=== PATIENT | female | born 1980 | race Caucasian/White ===

== ENCOUNTER → 2016-06-27 | Outpatient (CLI) | payer BC ==
[~2016-06-27] MED LIST: CIPR-255 PO; IBUP-1449 PO; PRENTAB26 PO
[2016-06-27 10:07] LABS: BASO % 0.1 %; BASO ABS # 0.01 K/uL (0-0.2); COMPLETE YES; EOS % 1.3 %; HEMATOCRIT 31.3 % (37-47); IG% 0.3 %; LYMPH ABS # 1.15 K/uL (1.2-3.4); MEAN CELL VOLUME 92.3 fL (80-100); MEAN CORPUSCULAR HGB CONC 35.8 g/dl (32-36); MONO % 4.6 %; NEUT % 77.7 %; PLATELET COUNT 219 K/uL (130-400); RED BLOOD COUNT 3.39 M/uL (4.2-5.4); WHITE BLOOD COUNT 7.17 K/uL (4.8-10.8)
[2016-06-27 11:02] LABS: GTGD 50 Grams
== END | disposition home or self-care (01) ==
LOC: C.LAB 07:41
PROVIDERS: ATTEND Obstetrics & Gynecology
DX: O09.512 Supervision of elderly primigravida, second trimester (principal)

== ENCOUNTER 2016-12-02 11:35 | Inpatient (IN) | payer BC ==
[~2016-12-02] VITALS: Ht 160 cm; Wt 62.1 kg
[2016-12-02] MEDS ORDERED: LACTATED RINGER'S 1000ML 1,000 ML IV PRN (20:33)
[2016-12-02] MEDS ORDERED: LACTATED RINGER'S 1000ML 1,000 ML IV SCH (20:33)
[2016-12-02] MEDS ORDERED: LACTATED RINGER'S 1000ML 500 ML IV PRN ×2 (20:35→23:41)
[2016-12-02 20:43] VITALS: Ht 160 cm; Wt 62.1 kg
[2016-12-02] MEDS ORDERED: OXYTOCIN 30 UNITS/500ML NSS IV PRN (20:45)
[2016-12-02 20:59] LABS: HEMATOCRIT 30.4 % (37-47); MEAN CELL VOLUME 87.1 fL (80-100); MEAN CORPUSCULAR HEMOGLOBIN 28.9 pg (25-34); MEAN CORPUSCULAR HGB CONC 33.2 g/dl (32-36); MEAN PLATELET VOLUME 8.8 fL (7.4-10.4); PLATELET COUNT 216 K/uL (130-400); RED BLOOD COUNT 3.49 M/uL (4.2-5.4); WHITE BLOOD COUNT 7.93 K/uL (4.8-10.8)
[2016-12-02] MEDS ORDERED: BUPIVACAINE 0.25% 30 ML VIAL ONE (21:49)
[2016-12-02] MEDS ORDERED: FENTANYL 2MCG/ML ROPIV 1.25MG/ML 100ML BAG EPI ONE (21:50)
[2016-12-02] MEDS ORDERED: EpHEDrine SULFATE INJ 50 MG/ML AMP ONE (21:50)
[2016-12-02] MEDS ORDERED: FENTANYL CITRATE INJ 50 MCG/1 ML 2 ML VIAL ONE (21:50)
[2016-12-02] MEDS ORDERED: NALOXONE HCL INJ 1 MG in SODIUM CHLORIDE 0.9% 1000ML 1,000 ML IV PRN (23:41)
[2016-12-02] MEDS ORDERED: DiphenhydrAMINE HCL 50 MG/ML VIAL IV PRN (23:45)
[2016-12-02] MEDS ORDERED: NALOXONE HCL INJ 0.4 MG/1 ML VIAL/CARP IV PRN (23:45)
[2016-12-02] MEDS ORDERED: PROMETHAZINE HCL INJ 12.5 MG in SODIUM CHLORIDE 0.9% 50ML 50 ML IV PRN (23:45)
[2016-12-02] MEDS ORDERED: NALBUPHINE HCL INJ 10 MG/ML AMP IV PRN (23:45)
[2016-12-02] MEDS ORDERED: EpHEDrine SULFATE INJ 50 MG/ML AMP IV PRN (23:45)
[2016-12-02] MEDS ORDERED: FENTANYL 2MCG/ML ROPIV 1.25MG/ML 100ML BAG EPI PRN (23:45)
[2016-12-03] MEDS ORDERED: SUPERCREAM 0.870 % 15GM JAR EXT PRN (05:30)
[2016-12-03] MEDS ORDERED: HYDROCORTISONE ACETATE 25 MG SUPP PR PRN (05:30)
[2016-12-03] MEDS ORDERED: LANOLIN OINT EXT PRN ×2 (05:30)
[2016-12-03] MEDS ORDERED: BENZOCAINE 20% AER SPR 82.5 GM CAN EXT PRN (05:30)
[2016-12-03] MEDS ORDERED: OXYTOCIN 30 UNITS/500ML NSS IV PRN (05:30)
[2016-12-03] MEDS ORDERED: ACETAMINOPHEN 325 MG TAB PO PRN (05:30)
[2016-12-03] MEDS: OXYCODONE/ACETAMINOPHEN 5-325 TAB PO PRN ×4 (06:15→22:22)
--- NOTE | 2016-12-03 07:05 | Anesthesia Procedure Note ---
Anesthesia Epidural Removal Nt Date & Time Dec 03, 2016 at 07:05 Vital Signs Pain Intensity: 3.0 Notes Mental Status: alert / awake / arousable, participated in evaluation Nausea / Vomiting: adequately controlled Pain: adequately controlled Airway Patency, RR, SpO2: stable & adequate BP & HR: stable & adequate Hydration State: stable & adequate Neuraxial Anesthesia: was administered Anesthetic Complications: no major complications apparent, pt satisfied with anesthetic care Epidural: removed without complications, with tip intact
[2016-12-03 08:15] VITALS: BP 112/77; PULSE 89; TEMP 37.1; O2SAT 100
--- NOTE | 2016-12-03 08:22 | OPERATIVE REPORT ---
DATE OF OPERATION: 12/03/2016 SUMMARY: The patient is a 35-year-old, 5 and para 2. She has had 3 spontaneous ABs. Her prior was in 2005; an 8 pounds 11 ounce male at term. Had some shoulder dystocia associated with the delivery. Blood type is O positive, rubella immune. Beta screen negative. Well-dated with an ultrasound. Her due date is 12/05/2016. She was brought in for induction by request, also estimated weight was over 8 pounds. On admission, she was 5 cm dilated. She denied having any contractions. She was started directly on IV Pitocin. The Pitocin was turned up till she developed decent labor pattern which she got to about 6 cm, membranes were ruptured surgically. Fluid was clear at this time and she was given epidural for pain relief. She obtained good pain relief with the epidural. We continued to up the Pitocin. Eventually, went to full dilatation under an hour and pushed out a live female infant. After delivery of the head there was a moderate amount of shoulder dystocia which was managed by placing the bed flat, flexion of the maternal thighs, dislodging the shoulder from above with suprapubic pressure and then using a combination of traction on the head and some fundal pressure. In addition, we were able to get the posterior shoulder down into the hollow of the sacrum and then dislodge the anterior shoulder; did probably under 2 minutes. The infant was then delivered, moved both arms immediately, suctioned through the mouth and the nose. After delivery of the head, the cord was clamped and cut. Cord blood was taken for blood banking and then some cord blood was taken for the lab. With IV Pitocin running the placenta was removed intact. Uterus contracted nicely. Hemostasis was good. Inspection of the perineum revealed a laceration through the perineum into the upper portion of the rectal sphincter capsule. This laceration was repaired in 2 layers, a suture was placed at the upper extent of the defect of 2-0 Vicryl. Then a deep suture of 2-0 Vicryl was used to approximate the rectovaginal septum and the anterior capsule of the rectal sphincter. Then I went back and used the vaginal suture to approximate the vaginal mucosa out to and beyond the hymenal ring. I used a deep suture of 2-0 Vicryl to approximate the bulbocavernosus muscles. I used 2 separate sutures to approximate the perineal body and made a running subcuticular suture to approximate the perineal skin edges. Following this, vaginal exam including rectovaginal examination revealed no hematoma formation or sponges in the vagina. Estimated blood loss was 400 mL. Apgars were estimated at 8 and 9 respectively. I attest to the content of the Intraoperative Record and any orders documented therein. Any exceptions are noted below. MTDD
[2016-12-03] MEDS: PRENATAL VITAMIN TAB PO SCH (09:33)
[2016-12-03] MEDS: FERROUS SULFATE 325 MG TAB PO SCH (09:33)
[2016-12-03] MEDS: DOCUSATE SODIUM 100 MG CAP PO SCH ×2 (09:33→20:00)
[2016-12-03] MEDS: IBUPROFEN 600 MG TAB PO PRN ×4 (09:34→22:22)
[2016-12-03 13:05] VITALS: BP 119/83; PULSE 85; TEMP 36.7; O2SAT 100
[2016-12-03 16:10] VITALS: BP 123/86; PULSE 92; TEMP 36.9; O2SAT 100
[2016-12-03 20:16] VITALS: BP 108/73; PULSE 76; TEMP 36.3
[2016-12-04 00:30] VITALS: BP 120/76; PULSE 99; TEMP 36.2
[2016-12-04] MEDS: OXYCODONE/ACETAMINOPHEN 5-325 TAB PO PRN ×3 (04:38→22:28)
[2016-12-04] MEDS: IBUPROFEN 600 MG TAB PO PRN ×4 (04:38→22:27)
[2016-12-04 06:38] LABS: HEMATOCRIT 24.2 % (37-47)
--- NOTE | 2016-12-04 08:24 | Progress Note ---
Subjective Dec 04, 2016. Subjective conversation w/ patient Ambulation: ambulating normally Voiding: no voiding problems Passing Gas: Yes Diet Tolerance: Regular Diet Lochia: Small Feeding Type: Breast Feeding Review of Systems Constitutional: + fever Objective Vital Signs Date Time Temp Pulse Resp B/P (MAP) Pulse Ox O2 Delivery O2 Flow Rate FiO2 12/04/16 00:30 36.2 99 18 120/76 (91) Room Air 12/04/16 00:30 Room Air 12/03/16 20:16 36.3 76 18 108/73 (85) Room Air 12/03/16 16:10 100 Room Air 12/03/16 16:10 36.9 92 16 123/86 (98) 100 Room Air 12/03/16 13:05 36.7 85 18 119/83 (95) 100 Room Air Physical Exam General Appearance: WELL-APPEARING Abdomen: non tender Fundus: Firm, Non-Tender Extremities: no pedal edema, no calf tenderness Laboratory Results Last 24 Hours Test 12/04/16 06:15 Hemoglobin 7.4 g/dL Hematocrit 24.2 % Assessment and Plan Problem List Medical Problems: (1) Dehydration Status: Acute (2) Nausea, vomiting, and diarrhea Status: Acute (3) Urinary tract infection Status: Acute Post- Day#: 1 Continue Routine Care: patient request discharge
--- NOTE | 2016-12-04 08:27 | Discharge Instructions ---
Discharge Instructions Date of Service Dec 04, 2016. Admission Reason for Admission: Induction Discharge Discharge Diagnosis / Problem: macrosomia induction Discharge Goals Goal(s): Routine recovery after delivery Activity Recommendations Activity Limitations: as noted below ACTIVITY RECOMMENDATIONS: * Gradual return to full activity over the next 2-3 weeks. * No lifting - nothing heavier than baby over the next 2-3 weeks. * Do not engage in vigorous exercise, sexual activity or sports until cleared by your physician. * Do not drive or operate any motorized equipment until cleared by your physician. * You may shower/bathe daily. DIET: Resume Previous Diet If Breast-feeding: * Increase caloric intake by 500 calories, eat 3 well balanced meals, 2 high protein snacks a day and drink 6-8 8oz. glasses of fluid per day. BREAST CARE: If you are not breast feeding: * Wear a supportive bra 24 hours a day for one to two weeks. * Avoid stimulating your breasts and nipples as much as possible during the first few weeks after delivery. * When taking a shower, have the warm water hit your back, not breasts. * When your breasts feel full, apply ice packs. Usually three to four times a day helps ease the discomfort. * Take a mild pain medication (Tylenol / Motrin) when you are uncomfortable. If breast feeding: * Use breast milk to lubricate nipples. Lansinoh cream may be used for sore nipples. You do not need to remove cream prior to breast feeding. If using a different brand of cream, check the label for directions regarding removal of cream prior to nursing. * Wear a supportive bra. * If having problems with breasts or breast feeding, call a business intelligence consultant or your health care provider. OVER THE COUNTER MEDICATION: * For discomfort or pain, you may use Acetaminophen (Tylenol), Ibuprofen (Advil ), or Naproxen (Aleve) following the package directions. * For constipation you may use Colace following the package directions. SPECIAL CARE INSTRUCTIONS: * Vaginal rest (no tampons, douching, intercourse) until after doctor 's visit. * control as discussed with doctor. * Verbalizes understanding of car seat law as reviewed with patient nursing. * Car Seat hand-out given and reviewed with patient by nursing. * Shaken baby information reviewed with patient by nursing. Call you doctor if: * Temperature greater than or equal to 100.4 degrees F or 38.0 degrees C. Take your temperature twice daily for a week. * Bleeding becomes heavier than the heaviest part of your period - saturating a sanitary pad within an hour. * Passing large clots. * Bleeding has a foul smelling odor. * Signs and symptoms of phlebitis: leg pain, warm, red or swollen area on leg. * "Baby Blues" lasting longer than two weeks. ++ If you have had a and incision has increased pain, redness, swelling, presence of any drainage, or if the incision starts to open up. If you have any questions or concerns, call your health care practitioner at [phone]. FOLLOW-UP VISIT: Please call the office at to schedule a 6 week examination. . Instructions / Follow-Up Instructions / Follow-Up ACTIVITY RECOMMENDATIONS: * Gradual return to full activity over the next 2-3 weeks. * No lifting - nothing heavier than baby over the next 2-3 weeks. * Do not engage in vigorous exercise, sexual activity or sports until cleared by your physician. * Do not drive or operate any motorized equipment until cleared by your physician. * You may shower/bathe daily. DIET: Resume Previous Diet If Breast-feeding: * Increase caloric intake by 500 calories, eat 3 well balanced meals, 2 high protein snacks a day and drink 6-8 8oz. glasses of fluid per day. BREAST CARE: If you are not breast feeding: * Wear a supportive bra 24 hours a day for one to two weeks. * Avoid stimulating your breasts and nipples as much as possible during the first few weeks after delivery. * When taking a shower, have the warm water hit your back, not breasts. * When your breasts feel full, apply ice packs. Usually three to four times a day helps ease the discomfort. * Take a mild pain medication (Tylenol / Motrin) when you are uncomfortable. If breast feeding: * Use breast milk to lubricate nipples. Lansinoh cream may be used for sore nipples. You do not need to remove cream prior to breast feeding. If using a different brand of cream, check the label for directions regarding removal of cream prior to nursing. * Wear a supportive bra. * If having problems with breasts or breast feeding, call a business intelligence consultant or your health care provider. OVER THE COUNTER MEDICATION: * For discomfort or pain, you may use Acetaminophen (Tylenol), Ibuprofen (Advil ), or Naproxen (Aleve) following the package directions. * For constipation you may use Colace following the package directions. SPECIAL CARE INSTRUCTIONS: * Vaginal rest (no tampons, douching, intercourse) until after doctor 's visit. * control as discussed with doctor. * Verbalizes understanding of car seat law as reviewed with patient nursing. * Car Seat hand-out given and reviewed with patient by nursing. * Shaken baby information reviewed with patient by nursing. Call you doctor if: * Temperature greater than or equal to 100.4 degrees F or 38.0 degrees C. Take your temperature twice daily for a week. * Bleeding becomes heavier than the heaviest part of your period - saturating a sanitary pad within an hour. * Passing large clots. * Bleeding has a foul smelling odor. * Signs and symptoms of phlebitis: leg pain, warm, red or swollen area on leg. * "Baby Blues" lasting longer than two weeks. ++ If you have had a and incision has increased pain, redness, swelling, presence of any drainage, or if the incision starts to open up. If you have any questions or concerns, call your health care practitioner at [phone]. FOLLOW-UP VISIT: Please call the office at to schedule a 6 week examination. Current Hospital Diet Patient's current hospital diet: Regular Diet Discharge Diet Recommended Diet: Regular Diet Pending Studies Studies pending at discharge: no Medical Emergencies . Who to Call and When: Medical Emergencies: If at any time you feel your situation is an emergency, please call 911 immediately. . Non-Emergent Contact Non-Emergency issues call your: Cena Call Non-Emergent contact if: temperature is above 100.5 . . "Provider Documentation" section prepared by Miguel Etienne. . VTE Core Measure Inpt VTE Proph given/why not?: Treatment not indicated
[2016-12-04] MEDS: FERROUS SULFATE 325 MG TAB PO SCH (08:36)
[2016-12-04] MEDS: PRENATAL VITAMIN TAB PO SCH (08:37)
[2016-12-04] MEDS: DOCUSATE SODIUM 100 MG CAP PO SCH ×2 (08:37→20:07)
[2016-12-04] MEDS ORDERED: DIPHTHERIA/TETANUS/PERTUSSIS 0.5 ML SYR/VIAL IM. ONE (09:00)
[2016-12-04 09:40] VITALS: BP 104/72; PULSE 87; TEMP 36.7; O2SAT 100
[2016-12-04 15:20] VITALS: BP 110/77; PULSE 89; TEMP 37.1; O2SAT 98
[2016-12-04] MEDS ORDERED: BISACODYL 5 MG TABEC PO SCH (20:00)
[2016-12-05 00:10] VITALS: BP 120/76; PULSE 76; TEMP 36.7; O2SAT 100
[2016-12-05] MEDS: IBUPROFEN 600 MG TAB PO PRN ×2 (06:29→10:36)
[2016-12-05] MEDS: OXYCODONE/ACETAMINOPHEN 5-325 TAB PO PRN (06:32)
[2016-12-05] MEDS ORDERED: BISACODYL 10 MG SUPP PR PRN (07:00)
[2016-12-05 07:46] VITALS: BP 113/74; PULSE 84; TEMP 36.9
--- NOTE | 2016-12-05 08:04 | Progress Note ---
Subjective Dec 05, 2016. Subjective conversation w/ patient Ambulation: ambulating normally Voiding: no voiding problems Passing Gas: Yes Diet Tolerance: Regular Diet Lochia: Small Feeding Type: Breast Feeding Review of Systems Constitutional: + fever Objective Vital Signs Date Time Temp Pulse Resp B/P (MAP) Pulse Ox O2 Delivery O2 Flow Rate FiO2 12/05/16 07:46 36.9 84 18 113/74 (87) Room Air 12/05/16 00:10 100 Room Air 12/05/16 00:10 36.7 76 20 120/76 (91) 100 Room Air 12/04/16 15:20 Room Air 12/04/16 15:20 37.1 89 18 110/77 (88) 98 Room Air 12/04/16 09:40 100 Room Air 12/04/16 09:40 36.7 87 18 104/72 (83) 100 Room Air Physical Exam General Appearance: WELL-APPEARING Abdomen: non tender Fundus: Firm, Non-Tender Extremities: no pedal edema, no calf tenderness Assessment and Plan Problem List Medical Problems: (1) Dehydration Status: Acute (2) Nausea, vomiting, and diarrhea Status: Acute (3) Urinary tract infection Status: Acute Post- Day#: 2 Continue Routine Care: swelling and drainage left eye
[2016-12-05] MEDS: FERROUS SULFATE 325 MG TAB PO SCH (08:16)
[2016-12-05] MEDS: DOCUSATE SODIUM 100 MG CAP PO SCH (08:16)
[2016-12-05] MEDS: PRENATAL VITAMIN TAB PO SCH (10:36)
[2016-12-05 10:39] VITALS: BP_DIAS 74; PULSE 84; TEMP 36.9
== END 2016-12-05 12:40 | disposition home or self-care (01) | DRG 775 ==
LOC: C.LD 19:02 → C.OBG 12-03 07:47
PROVIDERS: ADMIT Obstetrics & Gynecology; ATTEND Obstetrics & Gynecology
PROC: 10907ZC Drainage of Amniotic Fluid, Therapeutic from Products of Conception, Via Natural or Artificial Opening (ICD-10-PCS; principal; 2016-12-03)
PROC: 3E033VJ Introduction of Other Hormone into Peripheral Vein, Percutaneous Approach (ICD-10-PCS; principal; 2016-12-03)
PROC: 0DQR0ZZ Repair Anal Sphincter, Open Approach (ICD-10-PCS; principal; 2016-12-03)
PROC: 10E0XZZ Delivery of Products of Conception, External Approach (ICD-10-PCS; principal; 2016-12-03)
DX: O66.0 Obstructed labor due to shoulder dystocia (principal); O70.21 Third degree perineal laceration during delivery, IIIa; Z3A.39 39 weeks gestation of pregnancy; Z37.0 Single live birth; O99.89 Other specified diseases and conditions complicating pregnancy, childbirth and the puerperium; H57.8 Other specified disorders of eye and adnexa; O09.893 Supervision of other high risk pregnancies, third trimester